=== PATIENT | female | born 1965 | race Caucasian/White ===

== ENCOUNTER 2020-02-25 05:17 | Emergency (ER) | payer BC ==
[2020-02-25] MEDS ORDERED: Codeine/Promethazine 10-6.25 MG/5 ML Syrup 5 ML UD Cup PO ONE ×2 (05:18→05:32)
[2020-02-25] MEDS ORDERED: Codeine/Promethazine 10-6.25 MG/5 ML Syrup 5 ML UD Cup ONE (05:36)
--- NOTE | 2020-02-25 05:40 | EDM.PDOC ---
ED HPI GENERAL MEDICAL PROBLEM - General Chief Complaint: Respiratory Problem Stated Complaint: COUGH Time Seen by Provider: 02/25/20 05:32 Source of Information: Reports: Patient History Limitations: Reports: No Limitations - History of Present Illness INITIAL COMMENTS - FREE TEXT/NARRATIVE: been on z-monisha & pred past few days but still coughing and can't sleep. non- smoker. - Related Data Allergies Allergy/AdvReac Type Severity Reaction Status Date / Time No Known Allergies Allergy Verified 05/26/14 09:50 Home Meds: Home Meds Sertraline [Zoloft] 25 mg PO DAILY 05/26/14 [History] Social & Family History - Tobacco Use Smoking Status *Q: Never Smoker Second Hand Smoke Exposure: No - Caffeine Use Caffeine Use: Reports: Coffee, Soda - Recreational Drug Use Recreational Drug Use: No ED ROS GENERAL - Review of Systems Review Of Systems: Comprehensive ROS is negative, except as noted in HPI. ED EXAM, GENERAL - Physical Exam Exam: See Below Exam Limited By: No Limitations General Appearance: Alert, WD/WN, Mild Distress, Other (episodic cough spasm) Ears: Hearing Grossly Normal Throat/Mouth: Normal Voice, No Airway Compromise Head: Atraumatic Neck: Non-Tender, Full Range of Motion Respiratory/Chest: No Accessory Muscle Use, Rhonchi, Wheezing. No: Decreased Breath Sounds Cardiovascular: Regular Rate, Rhythm GI/Abdominal: Soft, Non-Tender (Female) Exam: Deferred Rectal (Female) Exam: Deferred Neurological: Alert, Oriented, Normal Cognition, Normal Gait, No Motor/Sensory Deficits Psychiatric: Normal Affect, Normal Mood Skin Exam: Warm, Dry, Normal Color Lymphatic: No Adenopathy Course - Vital Signs Last Recorded V/S: Last Vital Signs Temp 36.2 C 02/25/20 05:23 Pulse 107 H 02/25/20 05:23 Resp 18 02/25/20 05:23 BP 142/70 H 02/25/20 05:23 Pulse Ox 95 02/25/20 05:23 - Orders/Labs/Meds Meds: Medications Discontinued Medications Generic Name Dose Route Start Last Admin Trade Name Freq PRN Reason Stop Dose Admin Albuterol/Ipratropium 3 ml 02/25/20 05:54 02/25/20 05:57 Duoneb 3.0-0.5 Mg/3 Ml NEB 02/25/20 05:55 3 ml ONETIME ONE Administration Promethazine HCl/Codeine 5 ml 02/25/20 05:32 02/25/20 05:40 Phenergan With Codeine PO 02/25/20 05:33 Not Given ONETIME ONE Promethazine HCl/Codeine Confirm 02/25/20 05:36 02/25/20 05:40 Phenergan With Codeine Administered 02/25/20 05:37 Not Given Dose 5 ml .ROUTE .STK-MED ONE Promethazine HCl/Codeine 5 ml 02/25/20 05:18 Phenergan With Codeine PO 02/25/20 05:19 .STK-MED ONE Departure - Departure Time of Disposition: 06:10 Disposition: Home, Self-Care 01 Condition: Good Clinical Impression: Bronchospasm with bronchitis, acute - Discharge Information Instructions: Acute Bronchitis, Adult Referrals: Blanca Yancey NP [Primary Care Provider] - Forms: ED Department Discharge Additional Instructions: 1) don't sleep flat at night 2) drink lots of liquids 3) use neb machine 3 to 4 times daily for cough 4) follow up at clinic rx given; phenergan codeine syrup qid prn x 4 oz albuterol 2.5mg solution tid-qid prn Sepsis Event Note (ED) - Evaluation Sepsis Screening Result: No Definite Risk
[2020-02-25] MEDS ORDERED: Albuterol/Ipratropium 3.0-0.5 MG/3 ML Neb Soln NEB ONE (05:54)
== END 2020-02-25 06:10 | disposition home or self-care (01) ==
LOC: DL.ED 05:17
DX: J20.9 Acute bronchitis, unspecified (principal)
CPT/HCPCS: 94640; 99283; A9270; J7620-GY